=== PATIENT | female | born 1955 | race African-American/Black ===

== ENCOUNTER 2019-07-10 05:21 | Inpatient (IN) | payer MEDICARE, MEDICAID ==
[2019-07-10] VITALS (41 sets, daily range): BP systolic 97–150; BP diastolic 47–100
[~2019-07-10] VITALS: Ht 165.1 cm; Wt 90.7 kg
[~2019-07-10 05:21] MED LIST: ASPI-1497 PO; ATOR40TA70 PO; FAMO20TA8 PO; LISI10TA5 PO; TRAM50TA3 PO
[2019-07-10] MEDS ORDERED: LACTATED RINGERS 1,000 ML IV SCH (06:15)
[2019-07-10] MEDS ORDERED: BACITRACIN 15GM TUBE TOP ONE (06:27)
[2019-07-10] MEDS ORDERED: THROMBIN (BOVINE) 5000 UNITS/VIAL TOP ONE ×2 (06:28→10:44)
[2019-07-10] MEDS ORDERED: BACITRACIN 50,000 UNITS/VIAL ONE (06:28)
[2019-07-10] MEDS ORDERED: LIDOCAINE HCL/EPINEPHRINE 1%-EPI 1:100,000 20 ML VIAL ONE (06:28)
[2019-07-10] MEDS ORDERED: ALBU18HF2 IH (06:46)
[2019-07-10] MEDS ORDERED: CLOP75TA4 PO (06:46)
[2019-07-10] MEDS ORDERED: LORA10TA7 PO (06:46)
[2019-07-10] MEDS ORDERED: MIDAZOLAM HCL 2 MG/2 ML VIAL ONE (07:12)
[2019-07-10] MEDS ORDERED: FENTANYL CITRATE/PF 50MCG/ML 2ML VIAL ONE (07:12)
[2019-07-10] MEDS ORDERED: NEOSTIGMINE METHYLSULFATE 1MG/ML 10 ML VIAL ONE (07:12)
[2019-07-10] MEDS ORDERED: GLYCOPYRROLATE 0.2 MG/ML 2ML VIAL ONE (07:12)
[2019-07-10] MEDS ORDERED: ROCURONIUM BROMIDE 10MG/ML VIAL 5ML IV ONE (07:12)
[2019-07-10] MEDS ORDERED: PROPOFOL 200MG/20ML VIAL IV ONE (07:12)
[2019-07-10] MEDS ORDERED: CLINDAMYCIN 900 MG PREMIX 50 ML IV ONE (07:14)
[2019-07-10] MEDS ORDERED: MORPHINE SULFATE 4 MG/ML CPJ (NOT FOR IM USE) IV PRN (07:45)
[2019-07-10] MEDS ORDERED: DEXAMETHASONE 4MG/ML 1ML VIAL ONE (08:14)
[2019-07-10] MEDS ORDERED: ONDANSETRON HCL 4MG/2ML INJ ONE (08:14)
[2019-07-10] MEDS ORDERED: HYDROMORPHONE HCL/PF 2MG/ML (OR) ONE (08:18)
[2019-07-10] MEDS ORDERED: LIDOCAINE HCL 1% 20ML VIAL (Pyxis) INJ ONE (11:12)
[2019-07-10] MEDS ORDERED: LABETALOL HCL 5MG/ML VIAL 20ML IV ONE (11:12)
[2019-07-10] MEDS ORDERED: NICARDIPINE 100 MG in SODIUM CHLORIDE 0.9% 60 ML IV PRN (11:30)
[2019-07-10] MEDS ORDERED: NALOXONE INJ IV PRN (13:00)
[2019-07-10] MEDS ORDERED: HYDROMORPHONE PCA 10MG/50ML IV PRN (13:00)
[2019-07-10] MEDS ORDERED: ONDANSETRON INJ IV PRN (13:00)
[2019-07-10] MEDS ORDERED: DIPHENHYDRAMINE INJ IV PRN (13:00)
[2019-07-10 14:44] LABS: HEMOGLOBIN. 8.4 g/dL (12.0-16.0); MEAN CORPUSCULAR HEMOGLOBIN 27.6 pg (28.0-32.0); MEAN CORPUSCULAR VOLUME 85.7 fL (81.0-99.0); MEAN PLATELET VOLUME 9.4 fl (7.4-10.4); PLATELET 118 x1000/uL (130-400); RED BLOOD CELL COUNT 3.03 mill/uL (4.2-5.4); RED CELL DISTRIBUTION WIDTH 14.6 % (11.6-14.6)
[2019-07-10 14:50] LABS: CHLORIDE 113 mEq/L (98-107)
[2019-07-10] MEDS: CLINDAMYCIN 600MG PREMIX 50 ML IV SCH ×2 (15:03→23:00)
[2019-07-10 15:29] LABS: PLATELET ESTIMATE DECREASED
[2019-07-10] MEDS ORDERED: IPRATROPIUM/ALBUTEROL 0.5-3(2.5)MG/3ML NEB HHN PRN (15:45)
[2019-07-10] MEDS: DEXT 5%/LACTATED RINGERS 1,000 ML IV SCH ×2 (16:20→22:36)
[2019-07-10] MEDS: MONTELUKAST SODIUM 10MG TABLET PO SCH (17:01)
[2019-07-10] MEDS: FAMOTIDINE 40MG TABLET PO SCH (17:01)
[2019-07-10] MEDS: IPRATROPIUM/ALBUTEROL 0.5-3(2.5)MG/3ML NEB HHN SCH (20:28)
[2019-07-11] VITALS (72 sets, daily range): BP systolic 56–164; BP diastolic 29–129
[2019-07-11] MEDS: IPRATROPIUM/ALBUTEROL 0.5-3(2.5)MG/3ML NEB HHN SCH ×4 (01:28→21:30)
[2019-07-11] MEDS: CLINDAMYCIN 600MG PREMIX 50 ML IV SCH ×3 (05:39→16:00)
[2019-07-11] MEDS: DEXT 5%/LACTATED RINGERS 1,000 ML IV SCH ×3 (08:03→20:36)
[2019-07-11] MEDS: LORATADINE 10MG TABLET PO SCH (08:49)
[2019-07-11] MEDS: FAMOTIDINE 40MG TABLET PO SCH ×2 (08:50→17:06)
[2019-07-11] MEDS: LISINOPRIL 10MG TABLET PO SCH (08:50)
[2019-07-11] MEDS ORDERED: ASPIRIN 81MG EC TABLET PO SCH (09:00)
[2019-07-11] MEDS ORDERED: CLOPIDOGREL 75MG TABLET PO SCH (09:00)
[2019-07-11] MEDS: MONTELUKAST SODIUM 10MG TABLET PO SCH (17:05)
[2019-07-11] MEDS: ATORVASTATIN CALCIUM 40MG TABLET PO SCH (20:36)
[2019-07-12] VITALS: BP 127/63
[2019-07-12] MEDS: CLINDAMYCIN 600MG PREMIX 50 ML IV SCH ×2 (00:13→06:12)
[2019-07-12] MEDS: IPRATROPIUM/ALBUTEROL 0.5-3(2.5)MG/3ML NEB HHN SCH ×4 (01:08→21:01)
[2019-07-12 04:00] VITALS: BP 112/88
[2019-07-12] MEDS: DEXT 5%/LACTATED RINGERS 1,000 ML IV SCH (05:17)
[2019-07-12 08:00] VITALS: BP 120/59
[2019-07-12] MEDS: LISINOPRIL 10MG TABLET PO SCH (08:36)
[2019-07-12] MEDS: LORATADINE 10MG TABLET PO SCH (08:36)
[2019-07-12] MEDS: FAMOTIDINE 40MG TABLET PO SCH ×2 (08:36→16:16)
[2019-07-12 12:00] VITALS: BP 116/56
[2019-07-12] MEDS: POLYETHYLENE GLYCOL 3350 (17GM) 1 DOSE PACK PO SCH (12:28)
[2019-07-12 16:00] VITALS: BP 135/52
[2019-07-12] MEDS: DOCUSATE SODIUM 100MG CAPSULE PO SCH (16:16)
[2019-07-12] MEDS: MONTELUKAST SODIUM 10MG TABLET PO SCH (16:16)
[2019-07-12] MEDS ORDERED: ACETAMINOPHEN 325MG TABLET PO PRN (16:45)
[2019-07-12 18:01] LABS: CHLORIDE 105 mEq/L (98-107)
[2019-07-12 18:05] LABS: BASOPHILS % 0.2 % (0.0-2.0); EOSINOPHILS % 0.2 % (0.0-5.0); HEMOGLOBIN. 7.7 g/dL (12.0-16.0); LYMPHOCYTES % 13.8 % (20.0-50.0); MEAN CORPUSCULAR VOLUME 83.7 fL (81.0-99.0); MEAN PLATELET VOLUME 9.4 fl (7.4-10.4); MONOCYTES % 12.2 % (2.0-8.0); NEUTROPHILS % 73.6 % (40.0-76.0); PLATELET 112 x1000/uL (130-400); RED BLOOD CELL COUNT 2.86 mill/uL (4.2-5.4); RED CELL DISTRIBUTION WIDTH 14.6 % (11.6-14.6)
[2019-07-12 20:00] VITALS: BP 99/56
[2019-07-12] MEDS: ATORVASTATIN CALCIUM 40MG TABLET PO SCH (21:07)
[2019-07-13] VITALS: BP 130/89
[2019-07-13] MEDS: DEXT 5%/LACTATED RINGERS 1,000 ML IV SCH ×2 (00:51→09:14)
[2019-07-13] MEDS: IPRATROPIUM/ALBUTEROL 0.5-3(2.5)MG/3ML NEB HHN SCH ×3 (02:15→22:05)
[2019-07-13 04:00] VITALS: BP 112/69
[2019-07-13 06:50] LABS: CLARITY URINE CLEAR (CLEAR); COLOR URINE YELLOW (YELLOW); KETONES URINE NEGATIVE (NEGATIVE); LEUKOCYTE ESTERASE URINE NEGATIVE (NEGATIVE); NITRITE URINE NEGATIVE (NEGATIVE); OCCULT BLOOD URINE NEGATIVE (NEGATIVE); PH URINE 7.5 (4.5-8.0); PROTEIN URINE NEGATIVE (NEGATIVE); SPECIFIC GRAVITY URINE 1.011 (1.005-1.030); UROBILINOGEN URINE 0.2 E.U./dL (0.2-1.0)
[2019-07-13 08:00] VITALS: BP 113/66
[2019-07-13] MEDS: LORATADINE 10MG TABLET PO SCH (09:10)
[2019-07-13] MEDS: DOCUSATE SODIUM 100MG CAPSULE PO SCH ×2 (09:10→17:32)
[2019-07-13] MEDS: FAMOTIDINE 40MG TABLET PO SCH ×2 (09:11→17:32)
[2019-07-13] MEDS: LISINOPRIL 10MG TABLET PO SCH (09:11)
[2019-07-13] MEDS: POLYETHYLENE GLYCOL 3350 (17GM) 1 DOSE PACK PO SCH (09:14)
[2019-07-13] MEDS: LACTULOSE 20G/30ML UDC PO SCH ×3 (10:32→17:33)
[2019-07-13] MEDS ORDERED: BISACODYL 10MG SUPP PR NR (10:45)
[2019-07-13 12:00] VITALS: BP 98/46
[2019-07-13 16:00] VITALS: BP 104/62
[2019-07-13] MEDS: MONTELUKAST SODIUM 10MG TABLET PO SCH (17:32)
[2019-07-13 20:00] VITALS: BP 132/70
[2019-07-13] MEDS: OXYCODONE HCL/ACETAMINOPHEN 5/325MG TABLET PO PRN (20:11)
[2019-07-13] MEDS: ATORVASTATIN CALCIUM 40MG TABLET PO SCH (20:13)
[2019-07-14] VITALS: BP 133/62
[2019-07-14] MEDS: DEXT 5%/LACTATED RINGERS 1,000 ML IV SCH ×2 (00:36→08:14)
[2019-07-14] MEDS: IPRATROPIUM/ALBUTEROL 0.5-3(2.5)MG/3ML NEB HHN SCH ×2 (02:38→09:23)
[2019-07-14 04:00] VITALS: BP 153/84
[2019-07-14 08:00] VITALS: BP 110/77
[2019-07-14] MEDS: LORATADINE 10MG TABLET PO SCH (08:12)
[2019-07-14] MEDS: FAMOTIDINE 40MG TABLET PO SCH ×2 (08:13→16:54)
[2019-07-14] MEDS: LISINOPRIL 10MG TABLET PO SCH (08:13)
[2019-07-14] MEDS: POLYETHYLENE GLYCOL 3350 (17GM) 1 DOSE PACK PO SCH (08:13)
[2019-07-14] MEDS: DOCUSATE SODIUM 100MG CAPSULE PO SCH ×2 (08:13→16:54)
[2019-07-14] MEDS ORDERED: MONT10TA21 PO (11:58)
[2019-07-14 12:00] VITALS: BP_SYST 118; BP_SYST 123; BP_DIAS 68; BP_DIAS 89
[2019-07-14] MEDS: OXYCODONE HCL/ACETAMINOPHEN 5/325MG TABLET PO PRN (12:07)
[2019-07-14 13:26] VITALS: BP 118/68
[2019-07-14 16:00] VITALS: BP 129/60
[2019-07-14] MEDS: MONTELUKAST SODIUM 10MG TABLET PO SCH (16:54)
== END 2019-07-14 18:04 | DRG 454 ==
LOC: OR 05:21 → MICUSO 05:22 → 6EST 07-11 17:41
PROVIDERS: ADMIT Neurological Surgery; ATTEND Neurological Surgery
PROC: 0SG0071 Fusion of Lumbar Vertebral Joint with Autologous Tissue Substitute, Posterior Approach, Posterior Column, Open Approach (ICD-10-PCS; principal; 2019-07-10)
PROC: 0SG00A0 Fusion of Lumbar Vertebral Joint with Interbody Fusion Device, Anterior Approach, Anterior Column, Open Approach (ICD-10-PCS; 2019-07-10)
PROC: 01NB0ZZ Release Lumbar Nerve, Open Approach (ICD-10-PCS; 2019-07-10)
PROC: 5A09357 Assistance with Respiratory Ventilation, Less than 24 Consecutive Hours, Continuous Positive Airway Pressure (ICD-10-PCS; 2019-07-11)
PROC: 5A09357 Assistance with Respiratory Ventilation, Less than 24 Consecutive Hours, Continuous Positive Airway Pressure (ICD-10-PCS; 2019-07-13)
DX: M48.061 Spinal stenosis, lumbar region without neurogenic claudication (principal); G82.20 Paraplegia, unspecified; G95.20 Unspecified cord compression; M43.16 Spondylolisthesis, lumbar region; M48.02 Spinal stenosis, cervical region; M19.90 Unspecified osteoarthritis, unspecified site; M10.9 Gout, unspecified; J45.909 Unspecified asthma, uncomplicated; G89.4 Chronic pain syndrome; D69.6 Thrombocytopenia, unspecified; E66.9 Obesity, unspecified; Z96.641 Presence of right artificial hip joint; R26.9 Unspecified abnormalities of gait and mobility; R73.9 Hyperglycemia, unspecified; D64.9 Anemia, unspecified; G47.33 Obstructive sleep apnea (adult) (pediatric); E78.5 Hyperlipidemia, unspecified; I10 Essential (primary) hypertension; M54.16 Radiculopathy, lumbar region; Z82.49 Family history of ischemic heart disease and other diseases of the circulatory system; Z98.891 History of uterine scar from previous surgery; Z88.0 Allergy status to penicillin; Z86.73 Personal history of transient ischemic attack (TIA), and cerebral infarction without residual deficits; Z91.010 Allergy to peanuts; Z79.899 Other long term (current) drug therapy; Z79.82 Long term (current) use of aspirin; Z68.33 Body mass index [BMI] 33.0-33.9, adult
CPT/HCPCS: 36415; 72100; 76000; 80048; 81003; 84145; 85025; 86850; 86900; 88304; 88311; 94640; 95925; 95926; 95928; 95929; 95940; 97162; 97166; 97530; C1713; J1100; J1170; J2250; J2270; J2405; J2704; J2710; J3010; J3490; J7121; J7620

== ENCOUNTER 2024-12-05 11:42 | Emergency (ER) | payer MEDICARE, MEDICAID ==
[~2024-12-05] VITALS: Ht 167.6 cm; Wt 91.0 kg
[~2024-12-05 11:42] MED LIST changes: +ALBU18HF2 IH; -ASPI-1497 PO; +LISI10TA26 PO; -LISI10TA5 PO; +LORA10TA7 PO; +MONT-46 PO
[2024-12-05 11:48] VITALS: O2SAT 98
[2024-12-05 12:41] LABS: BASOPHILS % 0.9 % (0.0-2.0); DIFFERENTIAL COMMENT 0; EOSINOPHILS % 2.1 % (0.0-5.0); HEMATOCRIT. 22.5 % (36.0-48.0); LYMPHOCYTES % 26.3 % (20.0-50.0); MEAN CORPUSCULAR HEMOGLOBIN 21.9 pg (28.0-32.0); MEAN CORPUSCULAR HGB CONC 30.6 g/dL (31.0-37.0); MEAN CORPUSCULAR VOLUME 71.4 fL (81.0-99.0); MEAN PLATELET VOLUME 9.1 fl (7.4-10.4); MONOCYTES % 9.1 % (2.0-8.0); NEUTROPHILS % 61.6 % (40.0-76.0); PLATELET 166 x1000/uL (130-400); RED BLOOD CELL COUNT 3.16 mill/uL (4.2-5.4); RED CELL DISTRIBUTION WIDTH 20.5 % (11.6-14.6); WHITE BLOOD COUNT 6.5 x1000/uL (4.5-11.0)
[2024-12-05 12:45] LABS: HEMOGLOBIN. 6.9 g/dL (12.0-16.0)
[2024-12-05 12:52] LABS: POTASSIUM 4.2 mEq/L (3.5-5.1)
[2024-12-05 12:52] LABS: CLARITY URINE TURBID (CLEAR); COLOR URINE DARK YELLOW (YELLOW); GLUCOSE URINE NEGATIVE (NEGATIVE); KETONES URINE NEGATIVE (NEGATIVE); LEUKOCYTE ESTERASE URINE 2+ (NEGATIVE); NITRITE URINE NEGATIVE (NEGATIVE); OCCULT BLOOD URINE NEGATIVE (NEGATIVE); PROTEIN URINE TRACE (NEGATIVE); SPECIFIC GRAVITY URINE 1.019 (1.005-1.030)
[2024-12-05 12:53] LABS: CALCIUM 9.1 mg/dL (8.7-10.4)
[2024-12-05 12:58] LABS: CREATININE 1.3 mg/dL (0.6-1.0)
[2024-12-05 13:05] LABS: BACTERIA URINE 1+; RBC URINE 0-2 /hpf (0-2); SQUAMOUS EPITHELIAL CELL URINE 2+ /lpf (RARE/1+); YEAST URINE NONE SEEN
[2024-12-05 17:29] LABS: HEMATOCRIT 24.1 % (36.0-48.0); HEMOGLOBIN 7.6 g/dL (12.0-16.0)
[2024-12-05 20:43] VITALS: BP 116/62; PULSE 105; RESP 20; TEMP 36.7; O2SAT 98
== END 2024-12-05 20:45 | disposition home or self-care (01) ==
LOC: ER 11:42
DX: D64.9 Anemia, unspecified (principal); E78.00 Pure hypercholesterolemia, unspecified; I10 Essential (primary) hypertension; Z96.659 Presence of unspecified artificial knee joint; Z96.649 Presence of unspecified artificial hip joint; Z88.0 Allergy status to penicillin; Z79.899 Other long term (current) drug therapy
CPT/HCPCS: 36415; 36430; 80048; 81003; 85014; 85018; 85025; 85384; 86850; 86900; 86920; 93005; 99285; P9016